=== PATIENT | female | born 1960 | race Caucasian/White ===

== ENCOUNTER 2020-03-07 11:18 | Emergency (ER) | payer OTHER ==
[~2020-03-07] VITALS: Ht 160 cm; Wt 56.7 kg
[2020-03-07] MEDS ORDERED: PROMETRIUM200 MG (11:39)
== END 2020-03-07 13:14 | disposition home or self-care (01) ==
LOC: ER 11:18
DX: S01.02XA Laceration with foreign body of scalp, initial encounter (principal); W21.04XA Struck by golf ball, initial encounter; Y93.53 Activity, golf; Y92.39 Other specified sports and athletic area as the place of occurrence of the external cause; Y99.8 Other external cause status